=== PATIENT | male | born 1950 | race Caucasian/White ===

== ENCOUNTER → 2020-08-21 | Outpatient (CLI) | payer MEDICARE ==
[~2020-08-21] MED LIST: Cialis20 MG PO; FISH1000 PO; GLIP5ER; GLYMET5 PO; LISI20 PO; Percocet 5-3251 EACH PO; Pravachol40 MG; ROSU10TA; UBID100 PO; Voltaren100 GM TOP
[2020-08-21 13:58] LABS: Stool Occult Bld Immuno 1 Negative (NEGATIVE)
== END | disposition home or self-care (01) ==
LOC: LAB EV 09:14 → LAB SHORT 09:14
PROVIDERS: Family Medicine
DX: D64.9 Anemia, unspecified (principal)
CPT/HCPCS: G0328

== ENCOUNTER 2024-07-11 10:05 | Day surgery (SDC) | payer MEDICARE ==
[2024-07-11] VITALS (7 sets, daily range): BP systolic 128–146; BP diastolic 73–85
[~2024-07-11] VITALS: Ht 170.2 cm; Wt 91.0 kg
[~2024-07-11 10:05] MED LIST changes: +ATOR80 PO; +Aspir 8181 MG PO; +GLIP5 PO; +LEVO-T50 MCG PO; +MECL25 PO; +METF500C PO; +PIOG30 PO; +Prinivil10 MG PO
[2024-07-11] MEDS ORDERED: Verapamil HCL 2.5 MG/ML 2ML Injection ONE (13:32)
[2024-07-11] MEDS ORDERED: Heparin Sodium 1000 Units/ML 10ML MDV ONE (13:32)
[2024-07-11] MEDS ORDERED: NS 2,000 ML IV ONE (13:32)
[2024-07-11] MEDS ORDERED: FentaNYL Citrate 50 MCG/ML 2 ML Injection ONE (13:32)
[2024-07-11] MEDS ORDERED: Midazolam HCl 1MG / ML 2ML Vial ONE (13:32)
[2024-07-11] MEDS ORDERED: NS 250 ML IV ONE (13:33)
--- NOTE | 2024-07-11 14:26 | NUR ---
PT RETURNS FROM LAB, ALERT AND ORIENTED UP IN RECLINER. PT VSS UPON ARRIVAL SNACKS PROVIDED. RIGHT RADIAL SITE WNL, NO OOZING OR SWELLING AT SITE OF TR BAND. PT S/O UPDATED.
--- NOTE | 2024-07-11 15:30 | NUR ---
TR BAND DEFLATED PER PROTOCOL. NO OOZING OR SWELLING NOTED. PT VSS REMAIN STABLE. SITTING UP IN RECLINER WITH S/O
--- NOTE | 2024-07-11 16:31 | NUR ---
pt dressed self with out difficulty, iv removed cathter intact. vss remain stable. discharge instructions reveiwed in detail. no further questions. plans for [facility] in [place]. Pt. tr band removed, bandage placed. site wnl,no oozing, swelling or bleeding. pt to drive pt home all belongings taken with pt to exit.
== END 2024-07-11 16:43 | disposition home or self-care (01) ==
LOC: MHTC 10:05
DX: I35.0 Nonrheumatic aortic (valve) stenosis (principal); I10 Essential (primary) hypertension; E03.9 Hypothyroidism, unspecified; E78.2 Mixed hyperlipidemia; E11.9 Type 2 diabetes mellitus without complications; Z88.5 Allergy status to narcotic agent; Z79.82 Long term (current) use of aspirin; Z79.84 Long term (current) use of oral hypoglycemic drugs; Z79.890 Hormone replacement therapy; Z79.899 Other long term (current) drug therapy
CPT/HCPCS: 76937; 93454; 99152; C1769; C1887; C1894; J1644; J2250; J3010; J7030; J7050; Q9967